=== PATIENT | male | born 1970 | race Caucasian/White ===

== ENCOUNTER 2020-02-16 23:57 | Emergency (ER) | payer OTHER ==
[~2020-02-16] VITALS: Ht 170.2 cm; Wt 68.1 kg
[~2020-02-16 23:57] MED LIST: 0.9 % SODIUM CHLORIDE 10 ML DISP.SYRIN. ONE; EPINEPHrine SYRINGE 1 MG/10 ML SYRINGE ONE; SODIUM BICARB ADULT 8.4% 50 MEQ/50 ML DISP.SYRIN. ONE
--- NOTE | 2020-02-17 00:05 | PHYS DOC ---
General Adult EDM: Chief Complaint: CARDIAC ARREST HPI: HPI: Patient is a 49-year-old male who was brought here from [facility] in cardiac arrest. Per report patient was witnessed rolled out of his bed, laid on the floor IN cardiac arrest. It was reported that CPR was initiated at 11:15 PM, EMS were called, they found him to be in asystole, they intubated him, continued resuscitation per ACLS protocol. Patient was given a total of 4 mg of epinephrine by the IO on the right proximal leg area. He was continued to be in asystole, they brought him emergently here. This physician saw the patient upon arrival, CPR in progress, he had no pulse, unresponsive to pain or verbal. ACLS protocol continued. Patient had extensive history of hypertension, diabetic, end-stage renal failure. EMS checked his blood sugar and it was around 320. On February 06, patient had a negative COVID-19 test. Review of Systems: Review of Systems: Not able to obtain due to condition Heart Score: Risk Factors: Risk Factors: DM, Current or recent (<one month) smoker, HTN, HLP, family history of CAD, obesity. Risk Scores: Score 0 - 3: 2.5% MACE over next 6 weeks - Discharge Home Score 4 - 6: 20.3% MACE over next 6 weeks - Admit for Clinical Observation Score 7 - 10: 72.7% MACE over next 6 weeks - Early Invasive Strategies Physical Exam: PE: Constitutional: Well developed, comatose. HENT: Normocephalic, atraumatic, bilateral external ears normal, ET tube in place. Eyes: pupils are fixed and dilated to 7 mm bilaterally, no reactive to light and accomodation. Neck: no JVD, no swelling, trachea is midline. Cardiovascular no pusle, no cardiac activity. Lungs & Thorax: patient is intubated, Bilateral breath sounds clear . Abdomen: soft, no masses, no pulsatile masses. [] Skin: cold, cyanosis. Back: atraumatic. Extremities: atraumatic Neurologic: comatose.... Psychologic: not able to obtain EKG: EKG: [] Radiology/Procedures: Radiology/Procedures: [] Course & Med Decision Making: Course & Med Decision Making Pertinent Labs and Imaging studies reviewed. (See chart for details) [Patient is a 49-year-old male who was found in cardiac arrest at [facility]. He was in asystole, he was resuscitated for more than 50 minutes, he was in asystole, he was pronounced by the physician at 0002 am on 02/17/20. Dragon Disclaimer: Dragon Disclaimer: This electronic medical record was generated, in whole or in part, using a voice recognition dictation system. Departure Departure: Impression: Primary Impression: Cardiac arrest Disposition: 20 (AT 002 ON 02/17/20) Condition: Referrals: PCP,NO (PCP) Justification of Admission: Justification of Admission: Justification of Admission Dx: N/A LEIA BROOKS DO Feb 17, 2020 00:05
== END 2020-02-17 01:55 | disposition expired ==
LOC: ER 23:57 → EEVIPCON 23:57 → ER 02-17 01:55
DX: I46.9 Cardiac arrest, cause unspecified (principal); E11.22 Type 2 diabetes mellitus with diabetic chronic kidney disease; I12.0 Hypertensive chronic kidney disease with stage 5 chronic kidney disease or end stage renal disease; N18.6 End stage renal disease; Z03.818 Encounter for observation for suspected exposure to other biological agents ruled out
CPT/HCPCS: 87426; 92950; 99285; J0171; U0003

== ENCOUNTER → 2020-02-16 | Outpatient (CLI) | payer OTHER ==
[2020-02-16 10:29] LABS: BASO # 0.1 x10^3/uL (0.0-0.2); BASO % 1 % (0-3); EOS % 0 % (0-3); HEMATOCRIT 26.7 % (39.0-53.0); HEMOGLOBIN 8.9 g/dL (13.0-17.5); LYMPH # 1.2 x10^3/uL (1.0-4.8); LYMPH % 10 % (24-48); MEAN CORPUSCULAR HEMOGLOBIN 30 pg (25-35); MEAN CORPUSCULAR HGB CONC 33 g/dL (31-37); MEAN CORPUSCULAR VOLUME 89 fL (79-100); MONO # 0.9 x10^3/uL (0.0-1.1); MONO % 8 % (0-9); NEUT # 9.6 x10^3uL (1.8-7.7); NEUT % 81 % (31-73); PLATELET COUNT 340 x10^3/uL (140-400); RED BLOOD COUNT 3.01 x10^6/uL (4.30-5.70); RED CELL DISTRIBUTION WIDTH 14.3 % (11.5-14.5); WHITE BLOOD COUNT 11.8 x10^3/uL (4.0-11.0)
== END ==
LOC: SPEC 10:05
PROVIDERS: ATTEND Nurse Practitioner
DX: N18.5 Chronic kidney disease, stage 5 (principal)
CPT/HCPCS: 36415; 85025